=== PATIENT | female | born 1990 | race American Indian/Alaskan Native ===

== ENCOUNTER 2019-01-12 02:39 | Emergency (ER) | payer SELFPAY ==
--- NOTE | 2019-01-12 07:25 | Emergency Department Report ---
ED General Adult HPI - General Chief complaint: Dyspnea/Respdistress Stated complaint: NUBIA Time Seen by Provider: 01/12/19 05:20 Source: patient Mode of arrival: Ambulatory Limitations: No Limitations - History of Present Illness Initial comments: Patient is a 28-year-old -[place] female with no past medical history who presents to the ED with intermittent shortness of breath for the last 2 days. Patient states that she just arrived from a short vacation in [facility], and had to cut short her medication because of intermittent shortness of breath and dizziness for which she was advised may have been from carbon monoxide poisoning in the facility where he was staying. Patient states that the shortness of breath occurs only when she lays down to sleep, and has to wake up but again breathing. Patient denies chest pain, nausea, vomiting, fever, chills, cough, abdominal pain, diaphoresis, numbness and tingling of upper and lower extremities bilaterally, change in vision, syncope or lightheadedness. Patient states that prior to arrival in this ED she just came from [facility] ER where extensive workup was performed, and was advised that all tests were unremarkable including a blood clot test. Complaint: Dyspnea, lightheaded, dizziness -: Sudden, days(s) (2) Location: chest Radiation: non-radiation Severity scale (0 -10): 0 Consistency: intermittent Improves with: none Worsens with: none Associated Symptoms: denies other symptoms, shortness of breath. denies: confusion, chest pain, cough, diaphoresis, fever/chills, headaches, loss of appetite, malaise, nausea/vomiting, seizure, syncope Treatments Prior to Arrival: none - Related Data Allergies Allergy/AdvReac Type Severity Reaction Status Date / Time No Known Allergies Allergy Unverified 01/12/19 02:49 ED Review of Systems ROS: Stated complaint: NUBIA Other details as noted in HPI Constitutional: denies: chills, fever Eyes: denies: eye pain, eye discharge, vision change ENT: denies: ear pain, throat pain Respiratory: shortness of breath. denies: cough, wheezing Cardiovascular: denies: chest pain, palpitations Endocrine: no symptoms reported Gastrointestinal: denies: abdominal pain, nausea, diarrhea Genitourinary: denies: urgency, dysuria, discharge Musculoskeletal: denies: back pain, joint swelling, arthralgia Skin: denies: rash, lesions Neurological: other (lightheadedness). denies: headache, weakness, paresthesias Psychiatric: denies: anxiety, depression Hematological/Lymphatic: denies: easy bleeding, easy bruising ED Past Medical Hx - Past Medical History Previous Medical History?: No - Surgical History Past Surgical History?: No - Social History Smoking Status: Never Smoker Substance Use Type: None ED Physical Exam - General Limitations: No Limitations General appearance: alert, in no apparent distress - Head Head exam: Present: atraumatic, normocephalic, normal inspection - Eye Eye exam: Present: normal appearance, PERRL, EOMI Pupils: Present: normal accommodation - ENT ENT exam: Present: normal exam, normal orophraynx, mucous membranes moist, TM's normal bilaterally, normal external ear exam - Neck Neck exam: Present: normal inspection, full ROM - Respiratory Respiratory exam: Present: normal lung sounds bilaterally. Absent: respiratory distress, rales, rhonchi, chest wall tenderness, decreased breath sounds - Cardiovascular Cardiovascular Exam: Present: regular rate, normal rhythm, normal heart sounds. Absent: systolic murmur, diastolic murmur, rubs, gallop - GI/Abdominal GI/Abdominal exam: Present: soft, normal bowel sounds. Absent: tenderness, hyperactive bowel sounds, hypoactive bowel sounds, organomegaly, mass - Rectal Rectal exam: Present: deferred - Extremities Exam Extremities exam: Present: normal inspection, full ROM, normal capillary refill - Back Exam Back exam: Present: normal inspection, full ROM. Absent: tenderness, CVA tenderness (L), muscle spasm, paraspinal tenderness - Neurological Exam Neurological exam: Present: alert, oriented X3, CN II-XII intact, normal gait - Psychiatric Psychiatric exam: Present: normal affect, normal mood - Skin Skin exam: Present: warm, dry, intact, normal color. Absent: rash ED Course Vital Signs 01/12/19 02:44 Temperature 98.0 F Pulse Rate 79 Respiratory 16 Rate Blood Pressure 121/86 O2 Sat by Pulse 96 Oximetry - Reevaluation(s) Reevaluation #1: 01/12/19 07:27 Patient is alert and oriented 3 and is not in any distress with normal vital signs. Oxygen saturation is 96% in room air. The carboxyhemoglobin level is normal. Patient is alert and oriented 3, resting comfortably and sleeping in the room in no distress. Patient is sent home and rest follow-up with her primary care physician in 2 days for reevaluation. The patient's symptoms are likely due to anxiety and panic attacks. Patient advised to return to the ED immediately if symptoms get worse. ED Medical Decision Making - Medical Decision Making Patient is alert and oriented 3 and is not in any distress with normal vital signs. Oxygen saturation is 96% in room air. The carboxyhemoglobin level is normal. Patient is alert and oriented 3, resting comfortably and sleeping in the room in no distress. Patient is sent home and rest follow-up with her primary care physician in 2 days for reevaluation. The patient's symptoms are l ikely due to anxiety and panic attacks. Patient advised to return to the ED immediately if symptoms get worse. - Differential Diagnosis shortness of breath, anxiety, lightheadedness Critical care attestation.: If time is entered above; I have spent that time in minutes in the direct care of this critically ill patient, excluding procedure time. ED Disposition Clinical Impression: Anxiety as acute reaction to exceptional stress, Shortness of breath Disposition: DC-01 TO HOME OR SELFCARE Is pt being admited?: No Does the pt Need Aspirin: No Condition: Stable Instructions: Generalized Anxiety Disorder (ED), Dyspnea (ED) Additional Instructions: Follow-up with your primary care physician in 2 days for reevaluation. Return to the ED immediately if symptoms get worse. Referrals: JEROMY ALVARES MD [Primary Care Provider] - 3-5 Days Time of Disposition: 07:29 Print Language: [place]
[2019-01-12 08:42] VITALS: BP 129/65
== END 2019-01-12 08:43 | disposition home or self-care (01) ==
LOC: ED 02:39
DX: F41.9 Anxiety disorder, unspecified (principal)
CPT/HCPCS: 82375